=== PATIENT | female | born 1995 | race Caucasian/White ===

== ENCOUNTER 2020-06-05 17:09 | Emergency (ER) | payer OTHER, SELFPAY ==
--- NOTE | ~2020-06-05 | CT_ITS ---
EXAMINATION: CT abdomen pelvis wo con DATE: 06/05/2020 18:25 INDICATION: Flank pain. Right lower quadrant abdominal pain. TECHNIQUE: Computed tomography (CT) of the abdomen and pelvis was performed without intravenous contr ast. Automated exposure control and iterative reconstruction technique were employed. Exam dose: 270 .45 mGy-cm total exam DLP. COMPARISON: None. FINDINGS: The lower lung zones are clear. Normal heart size. No pericardial or pleural effusion. Status post cholecystectomy. No hepatic, splenic, pancreatic, and adrenal or renal space-occupying mass lesion is evident on this limited noncontrast examination. Normal caliber of the abdominal aorta. No intraperitoneal or retroperitoneal or pelvic mass lesion or adenopathy or ascites. No evidence of appendicitis. No bowel obstruction, bowel wall thickening, pneumatosis or intraperiton eal free air. There is some shoddy nonenlarged mesenteric lymph nodes, most numerous in the right low er quadrant. The uterus, adnexal areas and urinary bladder are unremarkable. There is a small fat-containing umbilical hernia. Included skeletal structures are unremarkable. IMPRESSION: Nonspecific abdomen Status post cholecystectomy Reviewed, dictated and finalized at [facility] Reviewed, dictated and finalized at [facility].
[2020-06-05 17:10] VITALS: BP 122/64; PULSE 83; RESP 17; TEMP 36.8; O2SAT 100
[2020-06-05 17:29] LABS: Add Urine Microscopic? YES; Appearance Urine Cloudy (Clear); Bacteria Urine Trace /hpf; Bilirubin Urine Negative (Negative); Blood Urine 2+ (Negative); Color Urine Yellow (Yellow); Glucose Urine UA Negative (Negative); Ketones Urine Negative (Negative); Leukocyte Esterase Ur Negative LEU/UL (Negative); Mucus Urine Rare /lpf; Nitrate Urine Negative (Negative); Protein Urine Negative (Negative); Specific Grav Ur 1.019 (1.001-1.035); Squamous Epithelial Cell Urine Many /hpf (Few); Urobilinogen Urine Negative mg/dL (<2.0); WBC Urine 0-3 /hpf
--- NOTE | 2020-06-05 17:40 | ED.ABDPAIN ---
HPI - Abdominal Pain General Chief Complaint: Abdominal Pain Stated Complaint: ABD PAIN Time Seen by Provider: 06/05/20 17:13 Source: patient Mode of arrival: EMS Limitations: no limitations History of Present Illness HPI narrative: Patient is a 25-year-old female who presents to emergency department for evaluation of acute onset of right flank pain that began just prior to arrival patient presents per EMS noting aching pain worse with activity and movement from the right flank into the abdomen denies similar occurrence has not taken anything for her pain denies any recent injury trauma or illness or similar occurrence in the past Related Data Home Medications Medication Instructions Recorded Confirmed paroxetine HCl [Paxil] 10 mg PO QAM 06/05/20 Allergies Allergy/AdvReac Type Severity Reaction Status Date / Time No Known Allergies Allergy Unverified 01/15/19 14:34 Review of Systems Review of Systems: All systems reviewed & are unremarkable except as noted in HPI and below PMFSH Social History Social History (Updated 06/05/20 @ 17:42 by Fernando Moseley PA-C) Smoking status: Never smoker Gender identity (if verbalized by the patient): Female Exam Narrative: Exam Narrative: GENERAL: Well-appearing, well-nourished, and in no acute distress. HEAD: Normocephalic, atraumatic. EYES: PERRLA and EOMI. ENT: Nares clear, no rhinorrhea or epistaxis. Mucous membranes moist. CHEST: Clear to auscultation. No respiratory distress. No wheezes rales or rhonchi HEART: Regular rate and rhythm. No murmur heard. Normal peripheral pulses. ABDOMEN: Soft, tenderness of the right flank and abdomen no deformities noted no rebound or guard EXTREMITIES: Normal range of motion. No edema. SKIN: Warm, dry, no rash. NEURO: No focal deficits. Alert and oriented x3. PSYCH: Normal mood and affect. Course Course Emergency Course: Patient in the room at this time resting comfortably no distress afebrile nontoxic. Aware of CAT scan findings blood work results given medications in the emergency department with some improvement afebrile nontoxic-appearing no distress felt appropriate for outpatient reevaluation provided with reasons to return Vital Signs Vital signs: Vital Signs Temperature 98.3 F 06/05/20 17:10 Pulse Rate 83 06/05/20 17:10 Respiratory Rate 17 06/05/20 17:10 Blood Pressure 122/64 06/05/20 17:10 Pulse Oximetry 100 06/05/20 17:10 Temperature 98.3 F 06/05/20 17:10 Pulse Rate 87 06/05/20 18:31 Respiratory Rate 18 06/05/20 18:31 Blood Pressure 111/69 06/05/20 18:31 Pulse Oximetry 97 06/05/20 18:31 MDM - Abdominal Pain MDM Narrative Medical decision making narrative: Patients injury or pain is consistent with musculoskeletal etiology. No signs of neurological or vascular compromise on exam. Compartments and tissues are soft without signs of compartment syndrome. Pain is felt appropriate for further evaluation on an outpatient basis. Lab Data Result diagrams: 06/05/20 18:10 06/05/20 18:10 Labs: Lab Results 06/05/20 06/05/20 06/05/20 Range/Units 17:17 18:10 18:10 WBC 13.6 H (4.5-10.0) K/mm3 RBC 4.57 (4.2-5.4) M/mm3 Hgb 12.9 (12.0-15.0) g/dL Hct 38.7 (37.0-47.0) % MCV 84.7 (80-100) fl MCH 28.2 (26-34) pg MCHC 33.3 (32-36) g/dl RDW 12.7 (11.5-14.5) % Plt Count 336 (150-375) k/mm3 MPV 10.6 H (7.4-10.4) fl Immature Gran % (Auto) 0.4 (0-0.5) % Neut % (Auto) 64.5 (45.5-73.1) % Lymph % (Auto) 29.4 (18.3-44.2) % [place] % (Auto) 5.0 (2.6-8.5) % Eos % (Auto) 0.2 (0-4.4) % Baso % (Auto) 0.5 (0.2-1.2) % Lymph # (Auto) 3.98 H (0.9-3.2) K/mm3 [place] # (Auto) 0.7 H (0.1-0.6) K/mm3 Eos # (Auto) 0.0 (0-0.3) K/mm3 Baso # (Auto) 0.1 (0.0-0.1) K/mm3 Abs Immat Gran (auto) 0.05 H (0.00-0.031) K/mm3 Absolute Neuts (auto) 8.8 H (1.3-6.7) K/mm3 Absolute Nucleate
--- NOTE | 2020-06-05 18:11 | PC.NURSE ---
PT DIFFICULT STICK, MUTLIPLE ATTEMPTS MADE, RN HAS OBTAINED BLOOD AT THIS TIME.
[2020-06-05 18:16] LABS: Basophils Absolute Auto 0.1 K/mm3 (0.0-0.1); Basophils Percent Auto 0.5 % (0.2-1.2); Eosinophils Percent Auto 0.2 % (0-4.4); Hematocrit 38.7 % (37.0-47.0); Hemoglobin 12.9 g/dL (12.0-15.0); Immature Granulocyte Absolute 0.05 K/mm3 (0.00-0.031); Immature Granulocyte Percent A 0.4 % (0-0.5); Lymphocytes Absolute Auto 3.98 K/mm3 (0.9-3.2); Lymphocytes Percent Auto 29.4 % (18.3-44.2); Mean Corpuscular HGB Conc 33.3 g/dl (32-36); Mean Corpuscular Hemoglobin 28.2 pg (26-34); Mean Corpuscular Volume 84.7 fl (80-100); Mean Platelet Volume 10.6 fl (7.4-10.4); Monocytes Absolute Auto 0.7 K/mm3 (0.1-0.6); Neutrophils Absolute Auto 8.8 K/mm3 (1.3-6.7); Neutrophils Percent Auto 64.5 % (45.5-73.1); Platelet Count Result 336 k/mm3 (150-375); Red Blood Count 4.57 M/mm3 (4.2-5.4); Red Cell Distribution Width 12.7 % (11.5-14.5); White Blood Count 13.6 K/mm3 (4.5-10.0)
[2020-06-05 18:28] LABS: Alanine Aminotransferase 40 U/L (4-35); Albumin Level 4.3 g/dL (3.5-5.1); Alkaline Phosphatase 85 U/L (38-126); Anion Gap 7 mmol/L (8-16); Aspartate Amino Transferase 35 U/L (14-36); Bilirubin,Total 0.2 mg/dL (0.2-1.3); Blood Urea Nitrogen 9 mg/dL (7-17); Carbon Dioxide 24 mmol/L (22-30); Chloride 104 mmol/L (98-107); Estimated CRCL calculation 91 ml/min; Estimated Glomerular Filt Rate > 60; Glucose 95 mg/dL (65-105); Lipase 90 U/L (23-300); Potassium 3.7 mmol/L (3.4-5.0); Sodium 135 mmol/L (137-145)
[2020-06-05 18:31] VITALS: BP 111/69; PULSE 87; RESP 18; O2SAT 97
[2020-06-05] MEDS: SODIUM CHLORIDE 0.9% IV 1,000 ML 999 ML IV CONT (18:31)
[2020-06-05 19:06] VITALS: BP 106/67; PULSE 87; RESP 18; O2SAT 100
== END 2020-06-05 19:11 | disposition home or self-care (01) ==
PROVIDERS: Emergency Provider Emergency Medicine
DX: R10.31 Right lower quadrant pain (principal)
CPT/HCPCS: 36415; 74176; 80053; 81001; 81025; 83690; 85025; 96365; 99284; J0131; J7030

== ENCOUNTER 2023-09-20 17:10 | Emergency (ER) | payer OTHER, SELFPAY ==
[2023-09-20 17:38] VITALS: BP 124/77; PULSE 129; RESP 20; TEMP 37.1; O2SAT 95
[2023-09-20 17:40] VITALS: PULSE 100
--- NOTE | 2023-09-20 18:11 | ED.URI ---
HPI - URI/Sore Throat General Chief Complaint: Upper Respiratory Infection Stated Complaint: fever,sore throat History of Present Illness HPI Narrative: Patient presents with sore throat. No trouble swallowing no drooling. Related Data Home Medications Medication Instructions Recorded Confirmed bupropion HCl 200 mg tablet,12 hr 200 mg PO BID 09/20/23 09/20/23 sustained-release buspirone 10 mg tablet 10 mg PO TID 09/20/23 09/20/23 cetirizine 10 mg tablet 10 mg PO DAILY 09/20/23 09/20/23 Allergies Allergy/AdvReac Type Severity Reaction Status Date / Time No Known Allergies Allergy Unverified 09/20/23 17:58 Review of Systems Review of Systems: CONSTITUTIONAL: Denies fever, chills, or sweats. EYES: Denies visual changes, redness, or discharge. ENT: Denies rhinorrhea, congestion, sore throat, or otalgia. CARDIOVASCULAR: Denies chest pain, palpitations, or edema. RESPIRATORY: Denies cough or dyspnea. GASTROINTESTINAL: Denies abdominal pain, nausea, vomiting, or diarrhea. GENITOURINARY: Denies dysuria or hematuria. SKIN: Denies rash or itching. MUSCULOSKELETAL: Denies back pain, joint pain, or myalgia. NEUROLOGIC: Denies headache, numbness, or weakness. PSYCHIATRIC: Denies anxiety or depression. [facility] Social History Social History (Updated 06/05/20 @ 17:42 by Fernando Moseley, AGUSTIN) Smoking status: Never smoker Gender identity (if verbalized by the patient): Female Comments At time of signature, agree with nursing past medical, surgical, social and family history. There is no relevant family history pertinent to the presenting complaint Exam Narrative: GENERAL: Well-appearing, well-nourished, and in no acute distress. HEAD: Normocephalic, atraumatic. EYES: PERRLA and EOMI. ENT: Nares clear, no rhinorrhea or epistaxis. Mucous membranes moist. Mild pharyngeal erythema no trismus can open mouth fully NECK: Supple. CHEST: Clear to auscultation. No respiratory distress. HEART: Regular rate and rhythm. No murmur heard. Normal peripheral pulses. ABDOMEN: Soft, nontender, nondistended, normal active bowel sounds. EXTREMITIES: Normal range of motion. No edema. SKIN: Warm, dry, no rash. NEURO: No focal deficits. Alert and oriented x3. [place] Coma Scale Eye Opening: Spontaneous 4 [place] Coma Scale Motor: Obeys Commands 6 [place] Coma Scale Verbal: Oriented 5 [place] Coma Scale Total 15 Course Course Level of Care: Express Care Visit Vital Signs Vital signs: Vital Signs Temperature 37.1 C 09/20/23 17:38 Pulse Rate 129 H 09/20/23 17:38 Respiratory Rate 20 09/20/23 17:38 Blood Pressure 124/77 09/20/23 17:38 Pulse Oximetry 95 09/20/23 17:38 Oxygen Delivery Room Air 09/20/23 17:38 Temperature 37.1 C 09/20/23 17:38 Pulse Rate 129 H 09/20/23 17:38 Respiratory Rate 20 09/20/23 17:38 Blood Pressure 124/77 09/20/23 17:38 Pulse Oximetry 95 09/20/23 17:38 Oxygen Delivery Room Air 09/20/23 17:38 MDM - URI/Sore Throat Lab Data Labs: Strep Screen Positive Group A Strep *(Reference Range: Negative)* Discharge Plan Discharge Clinical Impression: Pharyngitis Patient Disposition: Home, Self-Care Condition: Stable Instructions: Antibiotic Form, Strep Throat (DC) Additional Instructions: .strep #1 Please take your antibiotic completely #2 Wash your hands often with soap and water or hand mid teacher #3 You can return to work or school after 24 hours of antibiotic treatment, and when fever free #4 Please increase oral fluids, to promote hydration #5 Do not share glasses, cups, eating utensils #6 cool mist humidifier #7 replace toothbrush after 48 hours of being on the antibiotic #8 if you develop fevers greater than 100.4?, can use acetaminophen or ibuprofen to help treat these #9 Please do not smoke, drink carbonated beverages, or alcohol, these can increase pain. [place], soft aj
== END 2023-09-20 18:15 | disposition home or self-care (01) ==
PROVIDERS: Emergency Provider Nurse Practitioner Family
DX: J02.9 Acute pharyngitis, unspecified (principal); F41.9 Anxiety disorder, unspecified; F32.A Depression, unspecified
CPT/HCPCS: 87880; 99203; G0463

== ENCOUNTER 2023-12-09 17:45 | Emergency (ER) | payer OTHER, SELFPAY ==
[2023-12-09 17:54] VITALS: BP 143/59; PULSE 97; RESP 20; TEMP 36.7; O2SAT 99
--- NOTE | 2023-12-09 18:27 | ED.URI ---
HPI - URI/Sore Throat General Chief Complaint: Upper Respiratory Infection Stated Complaint: throat Time Seen by Provider: 12/09/23 18:28 Source: patient, RN notes reviewed and old records reviewed Mode of arrival: ambulatory Limitations: no limitations History of Present Illness HPI Narrative: 28 year old female accompanied by her son presents to express care with complaints of sore throat starting yesterday, denies any known fever chills or sweats. Patient reports that she has history of strep and is suppose to see ENT in February due to enlarged tonsils and frequent strep. Patient reports that her kids have had coughs but no known exposure otherwise to known ill contacts. Patient has not taken any OTC medications for her symptoms. Patient reports that her symptoms are similar to previous episodes of strep. MD elicited complaint: cough and sore throat Pertinent past history: seasonal allergies and other (strep) Onset (ago): day(s) (since yesterday) Consistency: progressively worsening Pain scale (0-10): 7 Able to tolerate fluids by mouth: Yes Exacerbating factors: swallowing Treatments prior to arrival: none Related Data Home Medications Medication Instructions Recorded Confirmed bupropion HCl 200 mg tablet,12 hr 200 mg PO BID 09/20/23 09/20/23 sustained-release buspirone 10 mg tablet 10 mg PO TID 09/20/23 09/20/23 cetirizine 10 mg tablet 10 mg PO DAILY 09/20/23 09/20/23 aripiprazole 5 mg tablet mg 12/09/23 Allergies Allergy/AdvReac Type Severity Reaction Status Date / Time No Known Allergies Allergy Unverified 12/09/23 18:30 Review of Systems Review of Systems: CONSTITUTIONAL: Denies malaise, chills, sweats, or fever. EYES: Denies visual changes, redness, or discharge. ENT: Reports rhinorrhea, congestion,no sinus pain, no otalgia and positive for sore throat. CARDIOVASCULAR: Denies chest pain, palpitations, or edema. RESPIRATORY: Reports no cough.? Denies dyspnea. GASTROINTESTINAL: Denies abdominal pain, nausea, vomiting, diarrhea SKIN: Denies rash or itching. MUSCULOSKELETAL: Denies myalgia. NEUROLOGIC: Denies headache. All systems reviewed & are unremarkable except as noted in HPI and below PMFSH Past Medical History Medical History Anxiety and depression Seasonal allergies Strep throat Surgical History Surgical History History of History of cholecystectomy Social History Social History (Updated 12/09/23 @ 19:12 by Breann Pepper NP) Smoking status: Current every day smoker Tobacco type: e-cigarettes/vaping Gender identity (if verbalized by the patient): Female Comments At time of signature, agree with nursing past medical, surgical, social and family history. There is no relevant family history pertinent to the presenting complaint Exam Narrative: GENERAL: Well-appearing, well-nourished, and in no acute distress. HEAD: Normocephalic EYES: PERRLA, conjunctivae clear ENT: Nares clear, turbinates edematous and erythematous, clear discharge. Mucous membranes moist. TM pearly german with dull light reflex bilaterally; no tragal tenderness. Oropharynx erythematous without lesions. Tonsils red enlarged and without exudate, no drooling, no hoarseness, no trismus, uvula midline. painful swallowing NECK: Supple. No lymphadenopathy CHEST: Clear to auscultation, breath sounds equal. No wheezing, rhonchi, rales, or stridor. No respiratory distress, speaks in full sentences.no cough noted SAO2 99% on room air HEART: Regular rate and rhythm. No murmur heard. SKIN: Warm, dry, no rash. NEURO: Alert and oriented x3. PSYCH: Normal mood and affect Course Course Emergency Course: Patient is aware of diagnosis, understands and agrees to treatment plan.? Anticipatory guidance given.? Patient agrees to follow-up as directed and is aware of reasons
== END 2023-12-09 18:44 | disposition home or self-care (01) ==
PROVIDERS: Emergency Provider Registered Nurse
DX: J03.90 Acute tonsillitis, unspecified (principal); F17.290 Nicotine dependence, other tobacco product, uncomplicated; F41.9 Anxiety disorder, unspecified; F32.A Depression, unspecified
CPT/HCPCS: 87081; 87880; 99213; G0463

== ENCOUNTER 2024-01-28 15:17 | Emergency (ER) | payer OTHER, SELFPAY ==
[2024-01-28 15:22] VITALS: BP 120/79; PULSE 92; RESP 20; TEMP 36.7; O2SAT 100
[2024-01-28 15:28] VITALS: BP 120/79; PULSE 92; RESP 20; TEMP 36.7; O2SAT 100
--- NOTE | 2024-01-28 15:35 | ED.GENADULT ---
HPI - General Adult General Chief complaint: Nausea/Vomiting/Diarrhea Stated complaint: nausea/diarrhea Time Seen by Provider: 01/28/24 15:36 Source: patient, RN notes reviewed and old records reviewed Mode of arrival: ambulatory Limitations: no limitations History of Present Illness HPI narrative: 28-year-old female to Express Care for complaint of nausea, vomiting, diarrhea since yesterday. Patient endorses 4 episodes of diarrhea today and vomiting once this morning. Patient states she is able to now keep fluids down and has drank Sprite and Mountain Dew without issue. Patient denies abdominal pain, fever, urinary changes. Patient denies pertinent medical history , allergies, or known exposure to illness. Patient is sitting comfortably in exam room in no acute distress. Related Data Home Medications Medication Instructions Recorded Confirmed bupropion HCl 200 mg tablet,12 hr 200 mg PO BID 09/20/23 09/20/23 sustained-release buspirone 10 mg tablet 10 mg PO TID 09/20/23 09/20/23 cetirizine 10 mg tablet 10 mg PO DAILY 09/20/23 09/20/23 aripiprazole 5 mg tablet mg 12/09/23 hydroxyzine HCl 25 mg tablet mg 01/28/24 quetiapine 25 mg tablet mg 01/28/24 Allergies Allergy/AdvReac Type Severity Reaction Status Date / Time No Known Allergies Allergy Unverified 01/28/24 15:25 Review of Systems Review of Systems: All systems reviewed & are unremarkable except as noted in HPI and below Constitutional: Constitutional: Reports as per HPI, Denies body ache(s), Denies chills, Denies fatigue and Denies fever(s) Eyes: Eyes: Reports no additional eye complaints ENT: Reports system reviewed and no additional complaints, except as documented Cardiovascular: Cardiovascular: Reports no additional cardiovascular complaints, Denies chest pain and Denies dyspnea Respiratory: Respiratory: Reports no additional respiratory complaints, Denies cough and Denies dyspnea Gastrointestinal: Gastrointestinal: Reports diarrhea, Reports nausea and Reports vomiting Musculoskeletal: Musculoskeletal: Reports no additional musculoskeletal complaints Neurologic: Reports system reviewed and no additional complaints, except as documented Psychiatric: Psychiatric: Reports no additional psychiatric complaints PMFSH Past Medical History Medical History Anxiety and depression Seasonal allergies Strep throat Surgical History Surgical History History of History of cholecystectomy Social History Social History Smoking status: Current every day smoker Tobacco type: e-cigarettes/vaping Gender identity (if verbalized by the patient): Female Comments At the time of my signature, I reviewed and agree with the nursing past medical, surgical, social, and family history. There is no relevant family history pertinent to the patient complaint. Exam Const: General: cooperative, healthy appearing, comfortable, no acute distress, alert and well nourished Nutritional Appearance: well nourished Orientation/consciousness: patient oriented x3 Limitations: no limitations HENMT: Head: normal to inspection Ears: external ears normal Face/Nose/Sinus: Normal external nose present, Normal nares present, normal facial exam, No erythema and No edema Face and sinus: normal facial exam, no erythema and no edema Mouth: Yes Normal oral and palatal mucosa present Eyes: General: appearance normal, both eyes and all related structures Neck: Neck: normal visual inspection, full ROM and no meningeal signs Lymphatic: no lymphadenopathy noted and no lymphedema noted Chest: Chest palpation & inspection: normal inspection of the chest Resp: Effort & Inspection: normal respiratory effort and able to speak in complete sentences Auscultation: clear to auscultation bilaterall
== END 2024-01-28 16:01 | disposition home or self-care (01) ==
PROVIDERS: Emergency Provider Nurse Practitioner Family
DX: K52.9 Noninfective gastroenteritis and colitis, unspecified (principal); F17.290 Nicotine dependence, other tobacco product, uncomplicated; F41.9 Anxiety disorder, unspecified; F32.A Depression, unspecified
CPT/HCPCS: 99211; G0463